=== PATIENT | female | born 1985 ===

== ENCOUNTER 2020-08-12 11:33 | Outpatient (REF) | payer BC, SELFPAY ==
--- NOTE | 2020-08-12 10:30 | PAPFT_PTH ---
PATIENT: Jessica Joe LOC: [facility] U#:[id number] AGE/SX: 34/F ROOM: RE08/12/[address]: LAVONNE Landaverde : 1985 BED: DIS: 08/12/2020 SPEC #: [id number] RECD: 08/12/20 13:08 STATUS: KRISTEN RENiya #: [id number] ROBERT: 08/12/20 10:[address]: Chantell Santana DEPT: FOR[facility]LY [facility] Cytology RECD BY: Emma Meza ENTERED: 08/12/20 13:09 SP TYPE: PAPFT OT DR: Deanna Local Tissues: 1 - CX/ENDOCX FOR PAP SMEARS Procedures: PAP THIN PREP/UVM Screening HPV DNA PROBE Comments: [id number]
[2020-08-13 15:40] LABS: Chlamydia Result Negative (Negative); GC Result Negative (Negative)
== END 2020-08-12 11:53 ==
LOC: LBN 11:33
PROVIDERS: Visit Provider Nurse Practitioner Family
DX: Z12.4 Encounter for screening for malignant neoplasm of cervix (principal); Z11.3 Encounter for screening for infections with a predominantly sexual mode of transmission
CPT/HCPCS: 87491; 87591; 88142; 87624

== ENCOUNTER 2020-08-20 01:03 | Outpatient (CLI) | payer BC, SELFPAY ==
--- NOTE | 2020-08-20 07:15 | DI.US_ITS ---
EXAM: US PELVIS TRANSVAGINAL CLINICAL HISTORY: Menorrhagia,N92.0 TECHNIQUE: Transabdominal and transvaginal imaging was performed using standard protocol. COMPARISON: No exams were available for comparison FINDINGS: KIDNEYS: Kidneys are symmetric in size. No evidence of renal calculi. No evidence of hydronephrosis. No renal mass or cyst identified. UTERUS: Anteverted. 8.7 x 4.4 x 5.0 cm. Endometrium: 9 millimeters Myometrium: Unremarkable. Cervix: Unremarkable. OVARIES: Right: Cyst or mass: None. Left: Cyst or mass: None. DOPPLER: Color: Symmetric and uniform flow to both ovaries. No hyperemia. Duplex: Normal ovarian arterial waveforms visualized. CUL-DE-SAC: Free fluid: None. IMPRESSION: 1. Normal-appearing uterus with endometrial stripe within normal limits. 2. Unremarkable bilateral ovaries. DATA REPOSITORY:
== END 2020-08-20 01:23 ==
PROVIDERS: Visit Provider Nurse Practitioner Family
DX: N92.0 Excessive and frequent menstruation with regular cycle (principal)
CPT/HCPCS: 76830; 76856

== ENCOUNTER 2020-11-18 18:25 | Outpatient (REF) | payer BC, SELFPAY ==
[2020-11-18 21:27] LABS: HCT 44.3 % (36.0-46.0); HGB 14.9 g/dL (11.2-15.7); MCH 29.3 pg (27.0-33.0); MCHC 33.6 % (32.0-36.0); MCV 87.2 fL (80-95); MPV 9.5 fL (8.0-11.0); Platelet Count 357 10^3/uL (130-400); RBC 5.08 10^6/uL (3.93-5.22); RDW 12.3 % (11.7-14.6); RDW-SD 39.5 fL; WBC 6.07 10^3/uL (4.4-10.8)
[2020-11-18 21:43] LABS: ALT 37 U/L (14-59); AST 21 U/L (15-37); Albumin 4.5 g/dL (3.4-5.0); Alkaline Phosphatase 64 U/L (46-116); Anion Gap 6.6 mmol/L (3-11); BUN 14 mg/dL (7-18); CO2 27.4 mmol/L (21.0-32.0); CREATININE 0.86 mg/dL (0.55-1.02); Calculated LDL 163 mg/dL (<100); Chloride 104 mmol/L (98-107); Cholesterol 239 mg/dL (<200); Glucose 92 mg/dL (74-106); HDL Cholesterol 57 mg/dL (40-60); Potassium 3.9 mmol/L (3.5-5.1); Sodium 138 mmol/L (136-145); T4 9.8 ug/mL (4.7-13.3); TSH (W/Ref FT4) 1.89 uIU/mL (0.36-3.74); Total Protein 7.4 g/dL (6.4-8.2); Triglyceride 96 mg/dL (<150)
[2020-11-18 22:19] LABS: Vitamin D 25 Total 21.6 ng/ml (30-100)
[2020-11-19 16:58] LABS: T3, Total 125 ng/dL (97-169)
== END 2020-11-18 18:45 ==
LOC: NCHCN 18:25
PROVIDERS: Visit Provider Family Medicine
DX: E03.9 Hypothyroidism, unspecified (principal); E78.00 Pure hypercholesterolemia, unspecified; E55.9 Vitamin D deficiency, unspecified
CPT/HCPCS: 80053; 80061; 82306; 85027; 84436; 84443; 84480

== ENCOUNTER 2021-01-13 01:35 | Outpatient (CLI) | payer BC, SELFPAY ==
--- NOTE | 2021-01-13 | DI.US_ITS ---
EXAM: US THYROID CLINICAL HISTORY: THYROID NODULE, E04.1. TECHNIQUE: Ultrasound thyroid performed using standard protocol. COMPARISON: No exams were available for comparison FINDINGS: ISTHMUS: 4 mm RIGHT LOBE: Size: 4.3 x 1.3 x 1.5 cm Echogenicity: Normal. Vascularity: Normal. Nodules: Scattered tiny colloid cysts, largest measuring 4 millimeters. LEFT LOBE: Size: 4.2 x 1.1 x 1.5 cm Echogenicity: Normal. Vascularity: Normal. Nodules: Scattered tiny colloid cysts, largest measuring 3 millimeters OTHER FINDINGS: No adenopathy IMPRESSION: Scattered tiny colloid cysts. No suspicious nodules. DATA REPOSITORY:
== END 2021-01-13 01:55 ==
PROVIDERS: Visit Provider Family Medicine
DX: E04.2 Nontoxic multinodular goiter (principal)
CPT/HCPCS: 76536

== ENCOUNTER 2024-05-16 17:21 | Emergency (ER) | payer BC, SELFPAY ==
[2024-05-16 17:36] VITALS: BP 123/85; PULSE 110; RESP 15; TEMP 37; O2SAT 98
--- NOTE | 2024-05-16 18:34 | ED.GENADUL_ITS ---
Discharge Plan Disposition Patient Disposition: Home Condition: Good Discharge Details Clinical Impression: Lumbago Primary Care Provider: Aletha Talley ED Provider: Ayad Garcia Home Meds and New Rx's Prescriptions: New cyclobenzaprine 10 mg tablet 10 mg PO TID Qty: 14 0RF prednisone 50 mg tablet 50 mg PO DAILY Qty: 5 0RF No Action levothyroxine 50 mcg tablet 50 mcg PO DAILY sumatriptan succinate 50 mg tablet 50 mg PO ONCE cholecalciferol (vitamin D3) 25 mcg (1,000 unit) capsule 25 mcg PO DAILY Discharge Instructions Instructions: Low Back Pain ED Additional Instructions: At this time your signs and symptoms are clinically consistent with a back sprain and mild disc irritation. This can cause significant pain and take a fair bit of time to heal. I expect 1 to 2 months for potential resolution. In the meantime do not lift anything greater than 5 pounds for the next 2 weeks. Avoid any significant vigorous physical activity. Perform easy gentle regular activities at home without any significant bending or lifting. Please take the steroids as directed. Please continue to apply your Lidoderm patches. Please take the Flexeril as directed but do not take it when driving or operating any vehicles or heavy machinery, swimming, taking long baths, or operating firearms. Do not take this in combination with your [place]. Take the [place] only for breakthrough pain. Please use a heating pad as often as possible on your back. Perform daily gentle stretches on your back. Please continue to take the Tylenol and Motrin. You can take 1000 mg of Tylenol every 6 hours and 600 mg of ibuprofen every 6 hours. If you notice any worsening of your symptoms, or any new symptoms such as vomiting, diarrhea, fever, chills, shortness of breath, chest pain, numbness or tingling in your groin or legs, weakness in your legs, loss of control for your bowels or bladder, or fainting , please return immediately to the emergency department for reevaluation. Please follow up with your primary care provider as soon as possible for reassessment and reevaluation. As always, it was a pleasure participating in your medical care today. Referrals: Aletha Talley [Primary Care Provider] - HPI General Date/Time Provider Initiated Documentation: 05/16/24 18:11 . HPI Narrative: 38-year-old female with past medical history of chronic low back pain and chronic disc pathology, who presents today for low back pain. Patient states that 4 days ago she was riding a horse for an extended amount of time, and the next day on Wednesday she noticed pain in her low back and hips. She states that it feels similar to her previous episodes of back pain. She did try taking a dose of old cyclobenzaprine, some Aleve, and tried a Lidoderm patch but none of this helped. She has used Mal[place] Bridge's before in the past for pain but did not have any here. Patient denies any saddle anesthesia, numbness or tingling in the groin, change in sensation when wiping. Patient denies any change in sensation during sexual intercourse, bowel or bladder incontinence, leakage, or retention. Patient denies any weakness in the lower extremities, atypical falls or imbalance. She denies any IV or illicit drug use. She denies any fever or chills. No other complaints at this time. No other modifying factors. Related Data Home Medications Medication Instructions Recorded Confirmed levothyroxine 50 mcg tablet 50 mcg PO DAILY 08/12/20 sumatriptan succinate 50 mg tablet 50 mg PO ONCE 08/12/20 cholecalciferol (vitamin D3) 25 25 mcg PO DAILY 09/17/20 mcg (1,000 unit) capsule cyclobenzaprine 10 mg tablet 10 mg PO TID #14 tabs 05/16/24 prednisone 50 mg tablet 50 mg PO DAILY #5 tabs 05/16/24 Previous Rx's Medication Instructions Recorded cyclobenzaprine 10 mg tablet 10 mg PO TID #14 tabs 05/16/24 prednisone 50 mg tablet 50 mg PO DAILY #5 tabs 05/16/24 Allergies Allergy/AdvReac Type Severity Reaction Status Date / Time house dust Allergy Verified 01/13/21 09:04 Seasonal allergies Allergy Uncoded 01/13/21 09:04 General Stated Complaint: Nk/Back Pain KEERTHI: 3 Review of Systems All systems reviewed & are unremarkable except as noted in HPI and below Exam Narrative Exam Narrative: 1.Const: Well-nourished, Well-developed, appearing stated age 2.Eyes: PERRL, no conjunctival injection, and symmetrical lids. 3.ENT: Atraumatic external nose and ears. Moist MM. Neck: Symmetric, trachea midline, No thyromegaly. 4.CVS: +S1/S2, No murmurs or gallops. Peripheral pulses 2+ and equal in all extremities. Brisk capillary refill in all extremities. 5.RESP: Unlabored respiratory effort. Clear to auscultation bilaterally. No wheezes rales or rhonchi 6.GI: Soft, Nontender/Nondistended, No hepatosplenomegaly. No guarding or rebound. 7.MSK: Normocephalic/Atraumatic, Extremities w/o deformity or ttp No cyanosis or clubbing, Normal movement of all extremities. No midline tenderness to palpation over the CTLS spine. Mild pain at the SI joint, mild right paraspinal achiness coupled with paraspinal spasm. Normal ROM in flexion, extension, side bend, and rotation. Patient has +5 out of 5 strength in the lower extremities in dorsiflexion and plantarflexion, knee flexion and extension, hip flexion and extension. Normal strength for dorsiflexion and plantar flexion of the great toe bilaterally. There is +2 over 2 dorsalis pedis pulses bilaterally. There is normal sensation to the skin with light touch at the foot, knee, and hip. Normal saddle sensation. Good sensation over the deep sural nerve area bilaterally. Rectal exam demonstrates good rectal tone with excellent zeus-rectal sensation. Reflexes are +2 over 4 in the patellar reflex bilaterally. +5 out of 5 strength in the medial, ulnar, radial nerve distribution bilaterally in the hands as well as intact light touch sensation to these dermatomes on the hands 8.Skin: Warm, Dry. No rashes or lesions. 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 Sensation grossly intact, no focal neurologic deficits. 10.Psych: (AAO) x3. Appropriate mood and affect Course Vital Signs Vital signs: Vital Signs Temperature 37.0 C 05/16/24 17:36 Pulse 110 H 05/16/24 17:36 Respiratory Rate 15 05/16/24 17:36 Blood Pressure 123/85 05/16/24 17:36 Pulse Oximetry 98 05/16/24 17:36 Temperature 37.0 C 05/16/24 17:36 Temperature Source Temporal Artery Scan 05/16/24 17:36 Pulse 110 H 05/16/24 17:36 Respiratory Rate 15 05/16/24 17:36 Respiratory Effort Normal, Non-Labored 05/16/24 18:25 Blood Pressure 123/85 05/16/24 17:36 Blood Pressure Position Sitting 05/16/24 17:36 Pulse Oximetry 98 05/16/24 17:36 Oxygen Delivery Method Room Air 05/16/24 17:36 Oxygen Flow Rate 0 05/16/24 17:36 Pain Level 9 05/16/24 17:36 Medical Decision Making 38-year-old female with past medical history of chronic low back pain and chronic disc pathology, who presents today for low back pain. Patient states that 4 days ago she was riding a horse for an extended amount of time, and the next day on Wednesday she noticed pain in her low back and hips. She states that it feels similar to her previous episodes of back pain. She did try taking a dose of old cyclobenzaprine, some Aleve, and tried a Lidoderm patch but none of this helped. She has used [place]'s before in the past for pain but did not have any here. Patient denies any saddle anesthesia, numbness or tingling in the groin, change in sensation when wiping. Patient denies any change in sensation during sexual intercourse, bowel or bladder incontinence, leakage, or retention. Patient denies any weakness in the lower extremities, atypical falls or imbalance. She denies any IV or illicit drug use. She denies any fever or chills. No other complaints at this time. No other modifying factors. Physical exam demonstrates no concerning red flags for cauda equina syndrome, spinal epidural abscess, or acute neurovascular compromise.. She has normal saddle sensation, normal rectal tone. No midline spinal tenderness. No indication for emergent imaging. Normal sensation throughout, normal peripheral vascular exam. Symptoms are concerning for mild disc irritation and associated muscle spasm. No clinical evidence of trauma. We did discuss imaging options with the patient, and at this time through shared decision-making process, we decided to hold off for the time being as the current clinical history and exam demonstrates no evidence of acute neurologic emergency. Will treat the patient with steroids, and Toradol, Flexeril for home, and 3 [place] tablets for home use only as needed for breakthrough pain. Discussed red flags for which return. I have extensively reviewed the treatment plan and discharge instructions with the patient. I have addressed all patient concerns at this time. The patient was made aware of what symptoms to monitor for that would warrant a return to the emergency department. Discussed the plan with the patient, they demonstrate verbal understanding and agreement with our assessment and plan at this time. The documentation in this chart was dictated using [employer] dictation software. Please excuse any dictation errors. Quality:SDOH Health Related Social Needs: No Data to Display PFSH All Active Problems Lumbago (Acute) Bruxism (Acute) Hypothyroid (Chronic) Daily headache (Acute) Sensation of fullness in left ear (Acute) Migraine with aura (Acute) Menorrhagia (Acute) Family History Father Hypertension Kidney disease Mother Diabetes Thyroid disorder Social History Smoking/Tobacco Use Status: Never Smoking risk assessment performed?: Yes Alcohol Intake: current Alcohol Intake frequency: holidays/special occasions only Drug use: Never Substance use type: does not use Household members: family and children Housing: house Number of Children: 2 Pets and animals: Yes Pets and animals: dog(s) What is your relationship status?: Panel score (0-1 are the most socially isolated patients): 1 What type of physical activity do you participate in: walking Seatbelt use: always Do you feel safe in your relationship?: Yes
[2024-05-16 19:00] VITALS: BP 96/51; PULSE 83; RESP 16; O2SAT 97
[2024-05-16] MEDS: Acetaminophen 500 MG TAB 1000 MG PO (19:02)
[2024-05-16] MEDS: Ketorolac 30 MG/ML VIAL IM (19:03)
[2024-05-16] MEDS: methylPREDNISolone SUCC 125 MG VIAL IM (19:03)
== END 2024-05-16 19:05 | disposition home or self-care (01) ==
PROVIDERS: Emergency Provider Student in an Organized Health Care Education/Training Program; PCP Family Medicine
DX: M54.50 Low back pain, unspecified (principal); M25.551 Pain in right hip
CPT/HCPCS: 96372; 99284; 99283; J1885; J2919

== ENCOUNTER 2025-08-10 11:18 | Emergency (ER) | payer BC, SELFPAY ==
--- NOTE | 2025-08-10 11:15 | RT.EKG_ITS ---
APPROVED REPORT Exam: Resting ECG Reason for Exam: dizziness Patient Location: E HR:74 bpm ECG Measurements Heart Rate 74 AXIS ND 156 P 23 QRSd 82 QRS 56 QT 375 T 37 QTc 417 Conclusion Sinus rhythm...normal P axis, V-rate 60- 99
[2025-08-10 11:23] VITALS: BP 135/92; PULSE 89; RESP 16; TEMP 36.8; O2SAT 99
--- NOTE | 2025-08-10 11:50 | W.ED.GENAD ---
Discharge Plan Disposition Patient Disposition: Home Condition: Stable Discharge Details Clinical Impression: Vertigo Primary Care Provider: Aletha Talley ED Provider: Maine Ponce Home Meds and New Rx's Prescriptions: New meclizine [Antivert] 25 mg tablet,chewable 25 mg PO BID PRN (Reason: dizziness) Qty: 14 0RF Rx Instructions: Take 1 tablet by mouth twice daily as needed for dizziness No Action levothyroxine 50 mcg tablet 50 mcg PO DAILY sumatriptan succinate 50 mg tablet 50 mg PO ONCE cholecalciferol (vitamin D3) 25 mcg (1,000 unit) capsule 25 mcg PO DAILY cyclobenzaprine 10 mg tablet 10 mg PO TID Qty: 14 0RF Discharge Instructions Instructions: Vertigo ED Additional Instructions: At this time your labs are largely within normal limits. It does appear that you do have a chronic anemia most related to the iron deficiency anemia. Please follow-up with this with your PCP. Please take the dizziness medication up to 2 times daily as needed for symptoms. Increase oral fluids. Follow up with primary care provider in 3-5 days. Return to ED sooner if any worsening dizziness, inability to walk, headache, blurry or double vision, continued chest pain, or concerns. No evidence of heart attack today. Referrals: Aletha Talley [Primary Care Provider, Medicine] - 5 days Referral Note: ER follow-up, call for an appointment Clinical Impression: Vertigo Discharge Data Discharge Date/Time-TO BE ENTERED AT DEPARTURE: 08/10/25 13:33 HPI General Mode of arrival: ambulatory. Date/Time Provider Initiated Documentation: 08/10/25 11:31. Limitations to Documentation: no limitations. Information obtained by: patient, RN notes reviewed and old records reviewed. HPI Narrative: 39-year-old female presents to the ER with chief complaint of dizziness and room spinning which began around 3 AM. She states that it woke her up from sleep and gets worse when she lays on her side. Reports mild nausea no vomiting. Denies any headache. She also endorses some acid reflux type symptoms. She was ambulatory without assistance upon presentation to the emergency department. She reports that the room spinning sensation occurs with movement and turning her head. Denies any recent trauma or falls. Denies any abdominal pain or diarrhea. No other associated symptoms. She does have a past medical history of celiac disease. Hypothyroidism and low iron but she reports she has a difficult time taking the iron due to constipation. Related Data Home Medications ?Medication ?Instructions ?Recorded ?Confirmed levothyroxine 50 mcg tablet 50 mcg PO DAILY 08/12/20 08/10/25 sumatriptan succinate 50 mg tablet 50 mg PO ONCE 08/12/20 08/10/25 cholecalciferol (vitamin D3) 25 25 mcg PO DAILY 09/17/20 08/10/25 mcg (1,000 unit) capsule cyclobenzaprine 10 mg tablet 10 mg PO TID #14 tabs 05/16/24 08/10/25 meclizine 25 mg chewable tablet 25 mg PO BID PRN dizziness #14 tabs 08/10/25 (Antivert) Previous Rx's ?Medication ?Instructions ?Recorded cyclobenzaprine 10 mg tablet 10 mg PO TID #14 tabs 05/16/24 meclizine 25 mg chewable tablet 25 mg PO BID PRN dizziness #14 tabs 08/10/25 (Antivert) Allergies Allergy/AdvReac Type Severity Reaction Status Date / Time house dust Allergy Other (See Verified 08/10/25 11:26 Comment) gluten AdvReac Mild Other (See Verified 08/10/25 11:26 Comment) Seasonal allergies Allergy Other (See Uncoded 08/10/25 11:26 Comment) General Stated Complaint: Dizzy/Sync KEERTHI: 3 Review of Systems All systems reviewed & are unremarkable except as noted in HPI and below Constitutional Constitutional: Reports as per HPI, Denies headache(s) and Denies weakness ENT Ears, Nose, Mouth, and Throat: Reports vertigo and Denies headache(s) Musculoskeletal Musculoskeletal: Denies abnormal gait Neurologic Neurologic: Denies abnormal speech, Denies abnormal gait, Reports vertigo, Denies headache(s), Denies convulsions and Denies weakness Exam Narrative Exam Narrative: Constitutional: Alert and oriented x3. Appears stated age. Normal body habitus. Head: Normocephalic, no trauma. Eyes: Pupils PERRL, Red reflex noted, EOM's intact. Eyelids symmetrical without lesions, discharge, or swelling. ENT: Bilateral TM's WNL, External ear normal to inspection, no mastoid TTP, swelling, or erythema, Nasal turbinates WNL, no nasal discharge. Normal dentition, Posterior pharynx WNL, no exudate. Chest: RRR, Normal S1, S2, distal pulses intact. Resp: Lungs clear to auscultation bilaterally, no wheezes, rales, or rhonchi. Abdomen: Soft, non-distended, Normoactive bowel sounds all 4 quads. Musculoskeletal: Normal gait, Moves all 4 extremities without difficulty. Skin: No suspicious rashes or lesions. Capillary refill less than 2 sec. Neurologic: Cranial nerves II-XII intact. Alert and oriented x 3. Motor: No deficits noted. Hematologic/Lymphatic: No ecchymosis, no lymphadenopathy. Course Vital Signs Vital signs: Vital Signs Temperature 36.8 C 08/10/25 11:23 Pulse 89 08/10/25 11:23 Respiratory Rate 16 08/10/25 11:23 Blood Pressure 135/92 H 08/10/25 11:23 Pulse Oximetry 99 08/10/25 11:23 Temperature 36.8 C 08/10/25 11:23 Temperature Source Tympanic 08/10/25 11:23 Pulse 89 08/10/25 11:23 Respiratory Rate 16 08/10/25 11:23 Blood Pressure 135/92 H 08/10/25 11:23 Pulse Oximetry 99 08/10/25 11:23 Pain Level 3 08/10/25 11:23 Medical Decision Making 39-year-old female presents to the ER with chief complaint of dizziness and room spinning which began around 3 AM. She states that it woke her up from sleep and gets worse when she lays on her side. Reports mild nausea no vomiting. Denies any headache. She also endorses some acid reflux type symptoms. She was ambulatory without assistance upon presentation to the emergency department. She reports that the room spinning sensation occurs with movement and turning her head. Denies any recent trauma or falls. Denies any abdominal pain or diarrhea. No other associated symptoms. She does have a past medical history of celiac disease. Hypothyroidism and low iron but she reports she has a difficult time taking the iron due to constipation. Workup ordered including CBC CMP urinalysis urine liter of normal saline and meclizine. On patient reevaluation after meclizine she reports feeling somewhat better, patient was ambulatory to the bathroom without assistance. Reports decrease in the room spinning with turning her head. She has received a liter of normal saline. Labs show no leukocytosis, some normocytic anemia noted, CMP within normal limits, urinalysis shows 15 ketones trace leukocytes with squamous contamination, culture not indicated at this time. Patient discharged with meclizine prescription instructed to follow-up with PCP return to the ER for any worsening. This text was generated using [employer] dictation system, please disregard any oddities of phrase or misspellings. Lab Data Lab results reviewed: Yes I reviewed the patient's lab results. Labs: Laboratory Tests Range/Units 08/10/25 08/10/25 12:02 12:12 WBC (4.4-10.8) 10^3/uL 6.13 RBC (3.93-5.22) 10^6/uL 5.10 Hgb (11.2-15.7) g/dL 12.9 Hct (36.0-46.0) % 40.6 MCV (80-95) fL 80 MCH (27.0-33.0) pg 25.3 L MCHC (32.0-36.0) % 31.8 L RDW (11.7-14.6) % 16.3 H Plt Count (130-400) 10^3/uL 375 MPV (8.0-11.0) fL 8.9 Immature Gran % % 0.2 Neutrophils % % 70.7 Lymphocytes % % 20.6 Monocytes % % 5.7 Eosinophils % % 2.0 Basophils % % 0.8 Nucleated RBC % (0.0-0.3) % 0.0 Absolute Neutrophils (1.2-6.7) 10^3/uL 4.34 Absolute Lymphocytes (1.2-3.4) 10^3/uL 1.26 Absolute Monocytes (0.1-0.8) 10^3/uL 0.35 Absolute Eosinophils (0.0-0.7) 10^3/uL 0.12 Absolute Basophils (0.0-0.2) 10^3/uL 0.05 Sodium (136-145) mmol/L 139 Potassium (3.5-5.1) mmol/L 3.6 Chloride (98-107) mmol/L 102 Carbon Dioxide (21.0-32.0) mmol/L 28.4 Anion Gap (3-11) mmol/L 8.6 BUN (7-18) mg/dL 13 Creatinine (0.55-1.02) mg/dL 0.9 Est GFR (CKD-EPI 2020) (mL/min/1.73m2) 82.37 Glucose (74-106) mg/dL 104 Calcium (8.5-10.1) mg/dL 8.9 Magnesium (1.8-2.4) mg/dL 2.4 Total Bilirubin (0.2-1.0) mg/dL 1.0 AST (15-37) U/L 22 ALT (14-59) U/L 32 Alkaline Phosphatase (46-116) U/L 73 Total Protein (6.4-8.2) g/dL 7.5 Albumin (3.4-5.0) g/dL 4.3 Urine Color (Yellow) Yellow Urine Clarity (Clear) Cloudy Urine pH (5-8) 6.5 Ur Specific Johnson (1.005-1.025) 1.020 Urine Protein (Neg-Trace) mg/dL 30 H Urine Ketones (Negative) mg/dL 15 H Urine Blood (Negative) Negative Urine Nitrite (Negative) Negative Urine Bilirubin (Negative) Negative Urine Urobilinogen (Up to 0.2) mg/dL 1.0 H Ur Leukocyte Esterase (Negative) Trace H Urine RBC (0-2) HPF Negative Urine WBC (0-5) HPF 3-5 Ur Epithelial Cells (Negative) HPF Many Urine Crystals (Negative) HPF Negative Urine Bacteria (Negative) HPF Few Urine Casts (Negative) LPF Negative Urine Mucus (Negative) Trace Ur Culture Indicated? No Urine Glucose (Negative) mg/dL Negative PFSH All Active Problems (Updated 08/10/25 @ 13:18 by Maine Ponce NP) Vertigo (Acute) Bruxism (Acute) Hypothyroid (Chronic) Daily headache (Acute) Sensation of fullness in left ear (Acute) Migraine with aura (Acute) Menorrhagia (Acute) Family History Father Hypertension Kidney disease Mother Diabetes Thyroid disorder Social History Smoking/Tobacco Use Status: Never Smoking risk assessment performed?: Yes Alcohol Intake: current Alcohol Intake frequency: holidays/special occasions only Drug use: Never Substance use type: does not use Household members: family and children Housing: house Number of Children: 2 Pets and animals: Yes Pets and animals: dog(s) What is your relationship status?: Panel score (0-1 are the most socially isolated patients): 1 What type of physical activity do you participate in: walking Seatbelt use: always Do you feel safe in your relationship?: Yes
[2025-08-10 12:10] LABS: Abs Immature Grans 0.01 10^3/uL (0.0-0.06); HCT 40.6 % (36.0-46.0); HGB 12.9 g/dL (11.2-15.7); Immature Grans % 0.2 %; MCH 25.3 pg (27.0-33.0); MCHC 31.8 % (32.0-36.0); MCV 80 fL (80-95); MPV 8.9 fL (8.0-11.0); Platelet Count 375 10^3/uL (130-400); RBC 5.10 10^6/uL (3.93-5.22); RDW 16.3 % (11.7-14.6); RDW-SD 46.6 fL; WBC 6.13 10^3/uL (4.4-10.8)
[2025-08-10] MEDS: Normal Saline 1,000 ML 1000 ML IV (12:22)
[2025-08-10] MEDS: Meclizine 25 MG TAB PO (12:22)
[2025-08-10 12:23] LABS: Glucose Negative (Negative)
[2025-08-10 12:28] LABS: ALT 32 U/L (14-59); AST 22 U/L (15-37); Albumin 4.3 g/dL (3.4-5.0); Alkaline Phosphatase 73 U/L (46-116); Anion Gap 8.6 mmol/L (3-11); BUN 13 mg/dL (7-18); Bilirubin, Total 1.0 mg/dL (0.2-1.0); CO2 28.4 mmol/L (21.0-32.0); Calcium 8.9 mg/dL (8.5-10.1); Chloride 102 mmol/L (98-107); Estimated GFR 82.37 (mL/min/1.73m2); Glucose 104 mg/dL (74-106); Magnesium 2.4 mg/dL (1.8-2.4); Potassium 3.6 mmol/L (3.5-5.1); Sodium 139 mmol/L (136-145); Total Protein 7.5 g/dL (6.4-8.2)
[2025-08-10 12:31] LABS: C & S Indicated? No; RBC Negative HPF (0-2)
[2025-08-10 13:34] VITALS: BP 128/68; PULSE 82; RESP 18; O2SAT 97
--- NOTE | 2025-08-13 17:18 | NUR.NOTE ---
Access chart to determine if a referral was done and completed. Nursing Note:
== END 2025-08-10 13:33 | disposition home or self-care (01) ==
PROVIDERS: Emergency Provider Registered Nurse Emergency; PCP Family Medicine
DX: R42 Dizziness and giddiness (principal); R11.0 Nausea
CPT/HCPCS: 80053; 81025; 93005; 96360; 99284; 81003; 81015; 83735; 85025; 93010; 99283